=== PATIENT | male | born 1950 | race Caucasian/White ===

== ENCOUNTER → 2022-08-23 | Outpatient (CLI) | payer MEDICARE, OTHER | LOC: M RAD 12:24 | PROVIDERS: ATTEND Nurse Practitioner Family | DX: N18.9 Chronic kidney disease, unspecified (principal); N32.9 Bladder disorder, unspecified; N40.0 Benign prostatic hyperplasia without lower urinary tract symptoms ==

== ENCOUNTER → 2023-04-03 | Outpatient (CLI) | payer OTHER, MEDICARE | LOC: M PLAIMG 08:54 | PROVIDERS: ATTEND Nurse Practitioner Family | DX: R51.9 Headache, unspecified (principal); S09.90XS Unspecified injury of head, sequela ==

== ENCOUNTER 2023-09-13 09:35 | Inpatient (IN) | payer OTHER, MEDICARE ==
[~2023-09-13] VITALS: Ht 172.7 cm; Wt 87.8 kg
[2023-09-13] MEDS: methylPREDNISolone 125MG 2ML VIAL IV ONE (10:15)
[2023-09-13 10:17] LABS: VENOUS HCO3 25.6 MMOL/L (23.0-27.0); VENOUS O2 SATURATION 60.2 % (60.0-80.0); VENOUS PARTIAL PRESSURE CO2 49.6 mmHg (38.0-50.0); VENOUS PARTIAL PRESSURE O2 32.3 mmHg (30.0-50.0); VENOUS STANDARD HCO3 22.7 MMOL/L; VENOUS TOTAL CO2 27.1 MMOL/L (24.0-28.0)
[2023-09-13 10:26] LABS: BASO % 0.3 % (0.0-1.0); EOS # 0.1 10^3/uL (0.0-0.5); EOS % 1.2 % (0.0-3.0); HEMATOCRIT 44.4 % (42.0-52.0); HEMOGLOBIN 13.8 g/dl (13.5-17.5); LYMPH # 0.9 10^3/uL (1.5-5.0); LYMPH % 12.4 % (24.0-44.0); MEAN CORPUSCULAR HEMOGLOBIN 25.7 pg (27.0-33.0); MEAN CORPUSCULAR HGB CONC 31.1 g/dl (32.0-36.5); MEAN CORPUSCULAR VOLUME 82.5 fl (80.0-96.0); MONO # 0.5 10^3/uL (0.0-0.8); MONO % 7.4 % (2.0-8.0); NEUTROPHILS # 5.4 10^3/uL (1.5-8.5); NEUTROPHILS % 78.1 % (36.0-66.0); PLATELET COUNT, AUTOMATED 109 10^3/uL (150-450); RED BLOOD COUNT 5.38 10^6/uL (4.30-6.10); WHITE BLOOD COUNT 6.9 10^3/uL (4.0-10.0)
[2023-09-13] MEDS: IPRATROPIUM 0.5MG/ALBUTEROL 2.5MG INH SOL UD 3ML (DUONEB) NEB PRN (10:28)
[2023-09-13] MEDS ORDERED: FINA5TAB2 PO (10:37)
[2023-09-13] MEDS ORDERED: TAMS1CAP17 PO (10:37)
[2023-09-13] MEDS ORDERED: METO1TAB7 PO (10:37)
[2023-09-13] MEDS ORDERED: FLUO20CA22 PO (10:37)
[2023-09-13 10:58] LABS: ALBUMIN 3.6 G/DL (3.2-5.2); BILIRUBIN,DIRECT 0.5 MG/DL (<0.4); CALCIUM LEVEL 8.9 MG/DL (8.3-10.6); CREATININE FOR GFR 1.51 MG/DL (0.70-1.30); GLOMERULAR FILTRATION RATE 48.6 (>42); POTASSIUM SERUM 4.6 MMOL/L (3.5-5.1); TOTAL PROTEIN 6.3 G/DL (5.7-8.2)
[2023-09-13 10:59] LABS: THYROID STIMULATING HORMONE 0.773 uIU/ML (0.55-4.78); THYROXINE (T4) 8.2 UG/DL (4.5-10.9)
[2023-09-13 11:04] LABS: PROCALCITONIN 0.23 ng/ml
[2023-09-13] MEDS ORDERED: ISOVUE-370 76% 100ML VIAL As Ordered ONE (11:17)
[2023-09-13] MEDS: OSELTAMIVIR PHOSPHATE 75 MG CAP (TAMIFLU) PO ONE (12:21)
[2023-09-13] MEDS ORDERED: HOME MED LIST COMPLETE! XX SCH (12:25)
[2023-09-13] MEDS ORDERED: ALBUTEROL SULFATE 2.5MG/0.5ML INH NEB SOLN NEB PRN (18:05)
[2023-09-13] MEDS: FUROSEMIDE 100MG/10ML VIAL IV ONE (18:45)
[2023-09-13] MEDS: IPRATROPIUM 0.5MG/ALBUTEROL 2.5MG INH SOL UD 3ML (DUONEB) NEB SCH (20:39)
[2023-09-13] MEDS: SYMBICORT 160/4.5MCG INHALER 6GM INH SCH (20:39)
[2023-09-13 21:14] VITALS: BP 160/58; TEMP 98.6; O2SAT 96
[2023-09-13] MEDS: OSELTAMIVIR PHOSPHATE 75 MG CAP (TAMIFLU) PO SCH (21:35)
[2023-09-13] MEDS: HEPARIN SOD (PORCINE) 5000UNITS/ML 1ML VIAL/SYRINGE SQ SCH (21:38)
[2023-09-14] MEDS: ACETAMINOPHEN TAB 650MG DOSE (2X325MG) PO PRN (03:35)
[2023-09-14 04:57] VITALS: BP 130/51; TEMP 98.1; O2SAT 92
[2023-09-14 06:53] LABS: BASO % 0.1 % (0.0-1.0); HEMATOCRIT 41.2 % (42.0-52.0); HEMOGLOBIN 12.9 g/dl (13.5-17.5); LYMPH # 0.6 10^3/uL (1.5-5.0); LYMPH % 6.8 % (24.0-44.0); MEAN CORPUSCULAR HEMOGLOBIN 25.1 pg (27.0-33.0); MEAN CORPUSCULAR HGB CONC 31.3 g/dl (32.0-36.5); MEAN CORPUSCULAR VOLUME 80.2 fl (80.0-96.0); MONO # 0.4 10^3/uL (0.0-0.8); MONO % 4.2 % (2.0-8.0); NEUTROPHILS # 8.2 10^3/uL (1.5-8.5); NEUTROPHILS % 87.9 % (36.0-66.0); PLATELET COUNT, AUTOMATED 111 10^3/uL (150-450); RED BLOOD COUNT 5.14 10^6/uL (4.30-6.10); WHITE BLOOD COUNT 9.4 10^3/uL (4.0-10.0)
[2023-09-14 07:19] LABS: CALCIUM LEVEL 8.6 MG/DL (8.3-10.6); CREATININE FOR GFR 1.46 MG/DL (0.70-1.30); GLOMERULAR FILTRATION RATE 50.5 (>42); POTASSIUM SERUM 4.5 MMOL/L (3.5-5.1)
[2023-09-14 08:00] VITALS: BP 121/69; TEMP 98.1; O2SAT 94
[2023-09-14] MEDS: predniSONE 20 MG TAB PO SCH (08:47)
[2023-09-14] MEDS: FUROSEMIDE 40MG/4ML VIAL IV ONE (12:05)
[2023-09-14 14:00] VITALS: BP 132/61; TEMP 98.3; O2SAT 94
[2023-09-14] MEDS: TAMSULOSIN 0.4 MG CAP PO SCH (14:05)
[2023-09-14] MEDS: FINASTERIDE 5MG TAB PO SCH (14:05)
[2023-09-14] MEDS: FLUoxetine 20MG CAP PO SCH (14:28)
[2023-09-14] MEDS: METOPROLOL SUCC (TopROL XL) 50MG **XL** TAB PO SCH (14:34)
[2023-09-14] MEDS: OSELTAMIVIR PHOSPHATE 30MG CAPSULE PO SCH (19:54)
[2023-09-14 22:00] VITALS: BP 117/80; TEMP 98.4; O2SAT 92
[2023-09-15 06:00] VITALS: BP 119/75; TEMP 98.1; O2SAT 92
[2023-09-15 06:09] LABS: BASO % 0.2 % (0.0-1.0); EOS % 0.2 % (0.0-3.0); HEMATOCRIT 44.8 % (42.0-52.0); HEMOGLOBIN 13.6 g/dl (13.5-17.5); LYMPH # 1.3 10^3/uL (1.5-5.0); LYMPH % 10.9 % (24.0-44.0); MEAN CORPUSCULAR HEMOGLOBIN 24.6 pg (27.0-33.0); MEAN CORPUSCULAR HGB CONC 30.4 g/dl (32.0-36.5); MONO # 0.8 10^3/uL (0.0-0.8); MONO % 6.6 % (2.0-8.0); NEUTROPHILS # 9.8 10^3/uL (1.5-8.5); NEUTROPHILS % 81.4 % (36.0-66.0); PLATELET COUNT, AUTOMATED 124 10^3/uL (150-450); RED BLOOD COUNT 5.53 10^6/uL (4.30-6.10); WHITE BLOOD COUNT 12.1 10^3/uL (4.0-10.0)
[2023-09-15] MEDS: FUROSEMIDE 40MG/4ML VIAL IV ONE (06:16)
[2023-09-15 06:38] LABS: CALCIUM LEVEL 8.9 MG/DL (8.3-10.6); CREATININE FOR GFR 1.35 MG/DL (0.70-1.30); GLOMERULAR FILTRATION RATE 55.3 (>42); POTASSIUM SERUM 4.4 MMOL/L (3.5-5.1)
[2023-09-15] MEDS: IPRATROPIUM 0.5MG/ALBUTEROL 2.5MG INH SOL UD 3ML (DUONEB) NEB ONE (11:51)
[2023-09-15] MEDS: guaiFENesin ER TABLET 600 MG TAB PO SCH (11:52)
[2023-09-15 14:00] VITALS: BP 142/62; TEMP 97.7; O2SAT 94
[2023-09-15] MEDS: IPRATROPIUM 0.5MG/ALBUTEROL 2.5MG INH SOL UD 3ML (DUONEB) NEB SCH (15:51)
[2023-09-15] MEDS: dexAMETHasone 20MG/5ML VIAL IV SCH (19:32)
[2023-09-15] MEDS: RAMELTEON 8 MG TAB (ROZEREM) PO PRN (21:12)
[2023-09-15] MEDS: LACRILUBE (AKWA TEARS) OPHTH OINT 3.5GM OU SCH (21:17)
[2023-09-15 22:00] VITALS: BP 137/64; TEMP 98.5; O2SAT 99
[2023-09-16 05:58] LABS: BASO % 0.1 % (0.0-1.0); EOS % 0.1 % (0.0-3.0); HEMATOCRIT 41.7 % (42.0-52.0); LYMPH # 0.6 10^3/uL (1.5-5.0); LYMPH % 7.1 % (24.0-44.0); MEAN CORPUSCULAR HGB CONC 31.2 g/dl (32.0-36.5); MEAN CORPUSCULAR VOLUME 80.2 fl (80.0-96.0); MONO # 0.4 10^3/uL (0.0-0.8); MONO % 4.4 % (2.0-8.0); NEUTROPHILS # 7.8 10^3/uL (1.5-8.5); NEUTROPHILS % 86.9 % (36.0-66.0); PLATELET COUNT, AUTOMATED 105 10^3/uL (150-450)
[2023-09-16 06:00] VITALS: BP 135/60; TEMP 97.9; O2SAT 97
[2023-09-16 06:21] LABS: CALCIUM LEVEL 8.8 MG/DL (8.3-10.6); CREATININE FOR GFR 1.47 MG/DL (0.70-1.30); GLOMERULAR FILTRATION RATE 50.1 (>42)
[2023-09-16] MEDS ORDERED: TORSEMIDE 20 MG TAB PO SCH (09:00)
[2023-09-16] MEDS ORDERED: ARTIFICIAL TEARS DROPS 15ML BTL (VISINE DRY RELIEF) OU PRN (13:20)
[2023-09-16 14:00] VITALS: BP 144/66; TEMP 97.7; O2SAT 95
[2023-09-16 22:00] VITALS: BP 145/67; TEMP 98.1; O2SAT 94
[2023-09-17 06:00] VITALS: BP 155/75; TEMP 97.9; O2SAT 94
[2023-09-17 06:40] LABS: CALCIUM LEVEL 8.6 MG/DL (8.3-10.6); CREATININE FOR GFR 1.37 MG/DL (0.70-1.30); GLOMERULAR FILTRATION RATE 54.4 (>42); POTASSIUM SERUM 5.4 MMOL/L (3.5-5.1)
[2023-09-17 07:11] LABS: BASO % 0.1 % (0.0-1.0); EOS % 0.2 % (0.0-3.0); HEMATOCRIT 42.3 % (42.0-52.0); HEMOGLOBIN 13.2 g/dl (13.5-17.5); LYMPH # 0.6 10^3/uL (1.5-5.0); LYMPH % 7.5 % (24.0-44.0); MEAN CORPUSCULAR HEMOGLOBIN 25.3 pg (27.0-33.0); MEAN CORPUSCULAR HGB CONC 31.2 g/dl (32.0-36.5); MEAN CORPUSCULAR VOLUME 81.2 fl (80.0-96.0); MONO # 0.4 10^3/uL (0.0-0.8); MONO % 4.2 % (2.0-8.0); NEUTROPHILS # 7.4 10^3/uL (1.5-8.5); NEUTROPHILS % 86.1 % (36.0-66.0); PLATELET COUNT, AUTOMATED 105 10^3/uL (150-450); RED BLOOD COUNT 5.21 10^6/uL (4.30-6.10); WHITE BLOOD COUNT 8.6 10^3/uL (4.0-10.0)
[2023-09-17] MEDS ORDERED: COMBAER6 INH (10:37)
[2023-09-17] MEDS ORDERED: SYMB16INH INH (10:37)
[2023-09-17 14:00] VITALS: BP 144/62; TEMP 98.8; O2SAT 93
[2023-09-17] MEDS: IPRATROPIUM 0.5MG/ALBUTEROL 2.5MG INH SOL UD 3ML (DUONEB) NEB SCH (15:19)
[2023-09-17 21:31] VITALS: BP 146/62; TEMP 98.6; O2SAT 93
[2023-09-18 06:00] VITALS: BP 140/55; TEMP 98.1; O2SAT 94
[2023-09-18 06:14] LABS: BASO % 0.1 % (0.0-1.0); EOS % 0.1 % (0.0-3.0); HEMOGLOBIN 13.3 g/dl (13.5-17.5); LYMPH # 0.6 10^3/uL (1.5-5.0); LYMPH % 7.3 % (24.0-44.0); MEAN CORPUSCULAR HEMOGLOBIN 25.1 pg (27.0-33.0); MEAN CORPUSCULAR HGB CONC 30.9 g/dl (32.0-36.5); MEAN CORPUSCULAR VOLUME 81.3 fl (80.0-96.0); MONO # 0.6 10^3/uL (0.0-0.8); MONO % 7.3 % (2.0-8.0); NEUTROPHILS # 7.3 10^3/uL (1.5-8.5); NEUTROPHILS % 84.1 % (36.0-66.0); PLATELET COUNT, AUTOMATED 103 10^3/uL (150-450); RED BLOOD COUNT 5.29 10^6/uL (4.30-6.10); WHITE BLOOD COUNT 8.7 10^3/uL (4.0-10.0)
[2023-09-18 06:39] LABS: CALCIUM LEVEL 8.3 MG/DL (8.3-10.6); CREATININE FOR GFR 1.42 MG/DL (0.70-1.30); GLOMERULAR FILTRATION RATE 52.2 (>42); POTASSIUM SERUM 4.9 MMOL/L (3.5-5.1)
[2023-09-18 08:23] VITALS: BP 138/63
[2023-09-18] MEDS ORDERED: OSEL30CA PO (08:53)
[2023-09-18] MEDS ORDERED: MUCI600T31 PO (08:53)
[2023-09-18] MEDS ORDERED: PRED10TA2 PO (08:53)
== END 2023-09-18 12:06 | disposition home or self-care (01) | DRG 291 ==
LOC: EDBD 09:35 → M ED 09:35 → M ED INP 16:15 → M MSPAV 21:23
PROVIDERS: ADMIT Internal Medicine Nephrology; ATTEND Internal Medicine Nephrology
DX: I13.0 Hypertensive heart and chronic kidney disease with heart failure and stage 1 through stage 4 chronic kidney disease, or unspecified chronic kidney disease (principal); I50.41 Acute combined systolic (congestive) and diastolic (congestive) heart failure; J44.1 Chronic obstructive pulmonary disease with (acute) exacerbation; J45.901 Unspecified asthma with (acute) exacerbation; E87.1 Hypo-osmolality and hyponatremia; J10.1 Influenza due to other identified influenza virus with other respiratory manifestations; E78.5 Hyperlipidemia, unspecified; I25.10 Atherosclerotic heart disease of native coronary artery without angina pectoris; Z95.0 Presence of cardiac pacemaker; N18.32 Chronic kidney disease, stage 3b; N40.1 Benign prostatic hyperplasia with lower urinary tract symptoms; M19.90 Unspecified osteoarthritis, unspecified site; F41.9 Anxiety disorder, unspecified; F32.A Depression, unspecified; Z95.1 Presence of aortocoronary bypass graft; I27.20 Pulmonary hypertension, unspecified; I44.0 Atrioventricular block, first degree; I34.0 Nonrheumatic mitral (valve) insufficiency; R97.20 Elevated prostate specific antigen [PSA]; D69.6 Thrombocytopenia, unspecified; R16.1 Splenomegaly, not elsewhere classified; Z79.899 Other long term (current) drug therapy

== ENCOUNTER 2024-04-19 03:45 | Inpatient (IN) | payer MEDICARE, OTHER ==
[~2024-04-19] VITALS: Ht 172.7 cm; Wt 82.0 kg
[~2024-04-19 03:45] MED LIST: COMBAER6 INH; FINA5TAB2 PO; FLUO-365 PO; METO1TAB7 PO; MUCI600T31 PO; OSEL30CA PO; PRED10TA2 PO; SYMB16INH INH; TAMS1CAP17 PO
[2024-04-19 05:38] LABS: BASO % 0.5 % (0.0-1.0); EOS # 0.1 10^3/uL (0.0-0.5); EOS % 0.9 % (0.0-3.0); HEMATOCRIT 41.6 % (42.0-52.0); HEMOGLOBIN 12.8 g/dl (13.5-17.5); LYMPH % 17.1 % (24.0-44.0); MEAN CORPUSCULAR HEMOGLOBIN 25.7 pg (27.0-33.0); MEAN CORPUSCULAR HGB CONC 30.8 g/dl (32.0-36.5); MEAN CORPUSCULAR VOLUME 83.4 fl (80.0-96.0); MONO # 0.4 10^3/uL (0.0-0.8); MONO % 7.7 % (2.0-8.0); NEUTROPHILS # 4.1 10^3/uL (1.5-8.5); NEUTROPHILS % 73.4 % (36.0-66.0); PLATELET COUNT, AUTOMATED 124 10^3/uL (150-450); RED BLOOD COUNT 4.99 10^6/uL (4.30-6.10); VENOUS BASE EXCESS -2.6 (-2.0-2.0); VENOUS HCO3 22.1 MMOL/L (23.0-27.0); VENOUS O2 SATURATION 97.4 % (60.0-80.0); VENOUS PARTIAL PRESSURE CO2 37.8 mmHg (38.0-50.0); VENOUS PARTIAL PRESSURE O2 100.6 mmHg (30.0-50.0); VENOUS PH 7.384 UNITS (7.330-7.430); VENOUS STANDARD HCO3 22.3 MMOL/L; VENOUS TOTAL CO2 23.2 MMOL/L (24.0-28.0); WHITE BLOOD COUNT 5.6 10^3/uL (4.0-10.0)
[2024-04-19 06:02] LABS: ALBUMIN 3.2 G/DL (3.2-5.2); ALKALINE PHOSPHATASE 94 U/L (40-129); ALT/SGPT 13 U/L (7.0-40); AST/SGOT < 8 U/L (<34); BILIRUBIN,DIRECT 0.5 MG/DL (<0.4); BILIRUBIN,TOTAL 1.1 MG/DL (0.3-1.2); BLOOD UREA NITROGEN 51 MG/DL (9-23); CALCIUM LEVEL 9.5 MG/DL (8.3-10.6); CARBON DIOXIDE LEVEL 25 MMOL/L (20-31); CHLORIDE LEVEL 106 MMOL/L (98-107); CK-MB VALUE MASS 1.9 NG/ML (<3.6); CPK CREATINE PHOSPHOKINASE 79 U/L (46-171); CREATININE FOR GFR 1.59 MG/DL (0.70-1.30); GLOMERULAR FILTRATION RATE 45.7 (>42); GLUCOSE, FASTING 113 MG/DL (74-106); POTASSIUM SERUM 4.5 MMOL/L (3.5-5.1); SODIUM LEVEL 140 MMOL/L (136-145)
[2024-04-19 06:04] LABS: THYROID STIMULATING HORMONE 0.912 uIU/ML (0.55-4.78)
[2024-04-19] MEDS: FUROSEMIDE 100MG/10ML VIAL IV ONE (06:58)
[2024-04-19 07:17] LABS: CK-MB VALUE MASS 2.4 NG/ML (<3.6)
[2024-04-19 07:22] LABS: MB/CK RELATIVE INDEX 3.07 (< OR =4)
[2024-04-19] MEDS ORDERED: ISOVUE-370 76% 100ML VIAL As Ordered ONE (09:34)
[2024-04-19] MEDS ORDERED: GABA-1490 PO (10:42)
[2024-04-19] MEDS ORDERED: ATOR80TA59 PO (10:42)
[2024-04-19] MEDS ORDERED: COMBAER6 INH (10:42)
[2024-04-19] MEDS ORDERED: TORS100T PO (10:42)
[2024-04-19] MEDS ORDERED: ASPI81TA26 PO (10:42)
[2024-04-19] MEDS ORDERED: HOME MED LIST COMPLETE! XX SCH (10:45)
[2024-04-19] MEDS ORDERED: ACETAMINOPHEN 325 MG TAB PO PRN (13:00)
[2024-04-19] MEDS: NICOTINE 21MG/24HR 1 EA TRANSDERMAL TD ONE (13:00)
[2024-04-19] MEDS ORDERED: COMBIVENT RESPIMAT 100-20MCG INHALER 4GM INH PRN (13:05)
[2024-04-19] MEDS: DAPAGLIFLOZIN PROPANEDIOL 10MG TABLET (FARXIGA) PO SCH (13:57)
[2024-04-19] MEDS: TAMSULOSIN 0.4 MG CAP PO SCH (13:58)
[2024-04-19] MEDS: ATORVASTATIN 20 MG TAB PO SCH (13:58)
[2024-04-19] MEDS: ASPIRIN 81MG ENTERIC TABLET PO SCH (13:58)
[2024-04-19] MEDS: FLUoxetine 20MG CAP PO SCH (13:58)
[2024-04-19] MEDS: GABAPENTIN 300 MG CAP PO SCH (13:59)
[2024-04-19] MEDS: METOPROLOL SUCC (TopROL XL) 50MG **XL** TAB PO SCH (13:59)
[2024-04-19] MEDS: HEPARIN SOD (PORCINE) 5000UNITS/ML 1ML VIAL/SYRINGE SC SCH (14:00)
[2024-04-19] MEDS: ENTRESTO 24-26MG TABLET (SACUBITRIL/VALSARTAN) PO SCH (21:00)
[2024-04-19] MEDS: FINASTERIDE 5MG TAB PO SCH (21:14)
[2024-04-19 22:54] VITALS: BP 148/64; TEMP 97.9; O2SAT 97
[2024-04-19 23:00] VITALS: BP 148/64; TEMP 97.9; O2SAT 97
[2024-04-20 01:16] LABS: INR 1.16; PROTHROMBIN TIME 15.1 SECONDS (12.5-14.5)
[2024-04-20 07:25] LABS: BASO % 0.5 % (0.0-1.0); EOS # 0.1 10^3/uL (0.0-0.5); EOS % 1.8 % (0.0-3.0); HEMATOCRIT 43.9 % (42.0-52.0); HEMOGLOBIN 13.1 g/dl (13.5-17.5); LYMPH # 0.9 10^3/uL (1.5-5.0); LYMPH % 16.7 % (24.0-44.0); MEAN CORPUSCULAR HEMOGLOBIN 25.1 pg (27.0-33.0); MEAN CORPUSCULAR HGB CONC 29.8 g/dl (32.0-36.5); MEAN CORPUSCULAR VOLUME 84.1 fl (80.0-96.0); MONO # 0.5 10^3/uL (0.0-0.8); MONO % 8.2 % (2.0-8.0); NEUTROPHILS # 4.1 10^3/uL (1.5-8.5); NEUTROPHILS % 72.1 % (36.0-66.0); PLATELET COUNT, AUTOMATED 142 10^3/uL (150-450); RED BLOOD COUNT 5.22 10^6/uL (4.30-6.10); WHITE BLOOD COUNT 5.6 10^3/uL (4.0-10.0)
[2024-04-20 07:48] LABS: CALCIUM LEVEL 9.6 MG/DL (8.3-10.6); CREATININE FOR GFR 1.52 MG/DL (0.70-1.30); GLOMERULAR FILTRATION RATE 48.1 (>42); MAGNESIUM LEVEL 2.5 MG/DL (1.8-2.4); POTASSIUM SERUM 4.4 MMOL/L (3.5-5.1)
[2024-04-20 08:10] VITALS: BP 143/67; TEMP 97.6; O2SAT 96
[2024-04-20 09:49] VITALS: BP 129/58
[2024-04-20 09:55] VITALS: BP 129/58
[2024-04-20] MEDS ORDERED: FARX1TAB3 PO (11:29)
[2024-04-20] MEDS ORDERED: TORS100T PO (11:29)
[2024-04-20] MEDS ORDERED: ENTR1TAB PO (11:29)
== END 2024-04-20 13:14 | disposition home or self-care (01) | DRG 292 ==
LOC: M ED 03:45 → M ED INP 12:25 → OBSVTOIN 12:57 → M PCU 23:05
PROVIDERS: ADMIT Internal Medicine; ATTEND Internal Medicine
DX: I13.0 Hypertensive heart and chronic kidney disease with heart failure and stage 1 through stage 4 chronic kidney disease, or unspecified chronic kidney disease (principal); I50.32 Chronic diastolic (congestive) heart failure; I25.10 Atherosclerotic heart disease of native coronary artery without angina pectoris; J44.9 Chronic obstructive pulmonary disease, unspecified; E11.22 Type 2 diabetes mellitus with diabetic chronic kidney disease; N18.32 Chronic kidney disease, stage 3b; E78.5 Hyperlipidemia, unspecified; M19.90 Unspecified osteoarthritis, unspecified site; E11.42 Type 2 diabetes mellitus with diabetic polyneuropathy; F41.9 Anxiety disorder, unspecified; N52.9 Male erectile dysfunction, unspecified; F32.A Depression, unspecified; N40.1 Benign prostatic hyperplasia with lower urinary tract symptoms; F17.210 Nicotine dependence, cigarettes, uncomplicated; Z95.5 Presence of coronary angioplasty implant and graft; Z95.0 Presence of cardiac pacemaker; Z95.2 Presence of prosthetic heart valve; Z71.6 Tobacco abuse counseling; Z79.82 Long term (current) use of aspirin; Z79.899 Other long term (current) drug therapy

== ENCOUNTER → 2024-10-27 | Outpatient (CLI) | payer MEDICARE, OTHER ==
[~2024-10-27] MED LIST changes: +ASPI81TA26 PO; +ATOR80TA59 PO; +ENTR1TAB PO; +FARX1TAB3 PO; +GABA-1490 PO; +TORS100T PO
[2024-10-27 14:37] LABS: CALCIUM LEVEL 9.7 MG/DL (8.3-10.6); CREATININE FOR GFR 1.74 MG/DL (0.70-1.30); GLOMERULAR FILTRATION RATE 40.6 (>42); POTASSIUM SERUM 4.8 MMOL/L (3.5-5.1)
== END ==
LOC: M LAB 12:32
PROVIDERS: ATTEND Internal Medicine Cardiovascular Disease
DX: I50.43 Acute on chronic combined systolic (congestive) and diastolic (congestive) heart failure (principal)

== ENCOUNTER 2024-11-07 14:09 | Inpatient (IN) | payer OTHER, MEDICARE ==
[~2024-11-07] VITALS: Ht 172.7 cm; Wt 81.2 kg
[2024-11-07 16:36] LABS: BASO % 0.3 % (0.0-1.0); EOS # 0.2 10^3/uL (0.0-0.5); EOS % 2.3 % (0.0-3.0); HEMATOCRIT 41.2 % (42.0-52.0); HEMOGLOBIN 12.6 g/dl (13.5-17.5); LYMPH # 1.2 10^3/uL (1.5-5.0); LYMPH % 16.2 % (24.0-44.0); MEAN CORPUSCULAR HEMOGLOBIN 24.4 pg (27.0-33.0); MEAN CORPUSCULAR HGB CONC 30.6 g/dl (32.0-36.5); MEAN CORPUSCULAR VOLUME 79.7 fl (80.0-96.0); MONO # 0.6 10^3/uL (0.0-0.8); MONO % 8.6 % (2.0-8.0); NEUTROPHILS # 5.4 10^3/uL (1.5-8.5); NEUTROPHILS % 72.1 % (36.0-66.0); PLATELET COUNT, AUTOMATED 115 10^3/uL (150-450); RED BLOOD COUNT 5.17 10^6/uL (4.30-6.10); WHITE BLOOD COUNT 7.5 10^3/uL (4.0-10.0)
[2024-11-07 16:59] LABS: CALCIUM LEVEL 8.7 MG/DL (8.3-10.6); CREATININE FOR GFR 1.77 MG/DL (0.70-1.30); GLOMERULAR FILTRATION RATE 39.8 (>42); POTASSIUM SERUM 4.6 MMOL/L (3.5-5.1)
[2024-11-07] MEDS ORDERED: ISOVUE-370 76% 100ML VIAL As Ordered ONE (17:16)
[2024-11-07] MEDS: NS (Normal Saline) 0.9% 1,000 ML IV SCH (17:20)
[2024-11-07 17:31] LABS: ALBUMIN 3.1 G/DL (3.2-5.2); BILIRUBIN,DIRECT 0.4 MG/DL (<0.4); BILIRUBIN,TOTAL 0.8 MG/DL (0.3-1.2); CK-MB VALUE MASS 1.8 NG/ML (<3.6); MB/CK RELATIVE INDEX 4.18 (< OR =4); TOTAL PROTEIN 5.6 G/DL (5.7-8.2)
[2024-11-07 17:33] LABS: THYROID STIMULATING HORMONE 0.329 uIU/ML (0.55-4.78)
[2024-11-07 17:34] LABS: FREE T4 1.06 NG/DL (0.89-1.76)
[2024-11-07] MEDS: NS 500 ML IV ONE (18:26)
[2024-11-07 18:46] LABS: CK-MB VALUE MASS 1.9 NG/ML (<3.6)
[2024-11-07 18:48] LABS: MB/CK RELATIVE INDEX 3.87 (< OR =4)
[2024-11-07] MEDS ORDERED: MOM 30ML SUSPENSION UDC PO PRN (21:50)
[2024-11-07] MEDS ORDERED: MAALOX 30 ML SUSP *UDC PO PRN (21:50)
[2024-11-07] MEDS ORDERED: TORS20TA2 PO (22:16)
[2024-11-07] MEDS ORDERED: JARD1TAB PO (22:17)
[2024-11-07] MEDS ORDERED: MECL-136 PO (22:18)
[2024-11-07] MEDS ORDERED: SPIR-10 PO (22:18)
[2024-11-07] MEDS ORDERED: HOME MED LIST COMPLETE! XX SCH (22:20)
[2024-11-07 23:03] LABS: APPEARANCE, URINE CLEAR (CLEAR); BACTERIA, URINE AUTO NEGATIVE (NEGATIVE); BILIRUBIN, URINE AUTO NEGATIVE (NEGATIVE); BLOOD, URINE BLOOD 1+ (NEGATIVE); COLOR, URINE YELLOW (YELLOW); GLUCOSE, URINE (UA) AUTO 3+ mg/dL (NEGATIVE); KETONE, URINE AUTO NEGATIVE (NEGATIVE); LEUKOCYTE ESTERASE, URINE AUTO NEGATIVE (NEGATIVE); NITRITE, URINE AUTO NEGATIVE (NEGATIVE); PROTEIN, URINE AUTO NEGATIVE (NEGATIVE); RBC, URINE AUTO 1 /HPF (0-3); SPECIFIC GRAVITY URINE AUTO 1.024 (1.002-1.035); SQUAMOUS EPITHELIAL CELL UR AU 0 /HPF (0-6); UROBILINOGEN, URINE AUTO 0.2 mg/dL (0.0-2.0); WBC, URINE AUTO 0 /HPF (0-3)
[2024-11-08] MEDS: NS (Normal Saline) 0.9% 1,000 ML IV SCH (01:00)
[2024-11-08] MEDS: ACETAMINOPHEN 325 MG TAB PO PRN (03:32)
[2024-11-08 06:41] LABS: BASO % 0.5 % (0.0-1.0); EOS # 0.2 10^3/uL (0.0-0.5); EOS % 2.4 % (0.0-3.0); HEMATOCRIT 40.7 % (42.0-52.0); HEMOGLOBIN 12.6 g/dl (13.5-17.5); LYMPH % 16.8 % (24.0-44.0); MEAN CORPUSCULAR HEMOGLOBIN 24.6 pg (27.0-33.0); MEAN CORPUSCULAR VOLUME 79.3 fl (80.0-96.0); MONO # 0.4 10^3/uL (0.0-0.8); MONO % 7.1 % (2.0-8.0); NEUTROPHILS # 4.5 10^3/uL (1.5-8.5); NEUTROPHILS % 72.7 % (36.0-66.0); PLATELET COUNT, AUTOMATED 106 10^3/uL (150-450); RED BLOOD COUNT 5.13 10^6/uL (4.30-6.10); WHITE BLOOD COUNT 6.2 10^3/uL (4.0-10.0)
[2024-11-08 07:05] LABS: ALBUMIN 3.1 G/DL (3.2-5.2); BILIRUBIN,TOTAL 0.8 MG/DL (0.3-1.2); CALCIUM LEVEL 8.6 MG/DL (8.3-10.6); CREATININE FOR GFR 1.4 MG/DL (0.70-1.30); GLOMERULAR FILTRATION RATE 52.7 (>42); MAGNESIUM LEVEL 2.2 MG/DL (1.8-2.4); POTASSIUM SERUM 4.8 MMOL/L (3.5-5.1); TOTAL PROTEIN 5.6 G/DL (5.7-8.2)
[2024-11-08 07:11] LABS: PROCALCITONIN 0.24 ng/ml
[2024-11-08] MEDS ORDERED: MECLIZINE 12.5 MG TAB PO PRN (07:35)
[2024-11-08] MEDS: DOCUSATE SODIUM 100MG CAPSULE PO SCH (09:00)
[2024-11-08] MEDS: TORSEMIDE 20 MG TAB PO SCH (09:30)
[2024-11-08] MEDS: ATORVASTATIN 20 MG TAB PO SCH (09:30)
[2024-11-08] MEDS: GABAPENTIN 300 MG CAP PO SCH (09:30)
[2024-11-08] MEDS: FLUoxetine 20MG CAP PO SCH (09:30)
[2024-11-08] MEDS: ASPIRIN 81MG ENTERIC TABLET PO SCH (09:30)
[2024-11-08] MEDS: METOPROLOL SUCC *XL* 25MG TAB (TopROL *XL*) PO SCH (09:32)
[2024-11-08] MEDS: SPIRONOLACTONE 25 MG TAB PO SCH (09:33)
[2024-11-08] MEDS: TAMSULOSIN 0.4 MG CAP PO SCH (09:33)
[2024-11-08] MEDS ORDERED: MECLIZINE 25 MG TABLET PO PRN (10:35)
[2024-11-08 12:00] VITALS: BP 144/66; TEMP 97.5; O2SAT 96
[2024-11-08 12:35] VITALS: BP 128/57; TEMP 97.3; O2SAT 98
[2024-11-08 18:21] VITALS: BP 137/63; TEMP 97.3; O2SAT 98
[2024-11-08 19:55] VITALS: BP 136/69; TEMP 97; O2SAT 95
[2024-11-08 19:59] LABS: FOLATE 8.59 NG/ML (>5.4)
[2024-11-08 20:02] LABS: HEMOGLOBIN A1c 6.3 % (4.0-6.0)
[2024-11-08] MEDS: FINASTERIDE 5MG TAB PO SCH (20:17)
[2024-11-09 04:07] VITALS: BP 120/52; TEMP 97.2; O2SAT 95
[2024-11-09 07:02] LABS: BASO % 0.3 % (0.0-1.0); EOS # 0.1 10^3/uL (0.0-0.5); EOS % 2.2 % (0.0-3.0); HEMATOCRIT 39.9 % (42.0-52.0); HEMOGLOBIN 12.1 g/dl (13.5-17.5); LYMPH # 0.9 10^3/uL (1.5-5.0); LYMPH % 14.2 % (24.0-44.0); MEAN CORPUSCULAR HEMOGLOBIN 24.5 pg (27.0-33.0); MEAN CORPUSCULAR HGB CONC 30.3 g/dl (32.0-36.5); MEAN CORPUSCULAR VOLUME 80.9 fl (80.0-96.0); MONO # 0.5 10^3/uL (0.0-0.8); MONO % 7.2 % (2.0-8.0); NEUTROPHILS # 4.7 10^3/uL (1.5-8.5); NEUTROPHILS % 75.5 % (36.0-66.0); PLATELET COUNT, AUTOMATED 110 10^3/uL (150-450); RED BLOOD COUNT 4.93 10^6/uL (4.30-6.10); WHITE BLOOD COUNT 6.3 10^3/uL (4.0-10.0)
[2024-11-09 07:47] LABS: CALCIUM LEVEL 8.4 MG/DL (8.3-10.6); CREATININE FOR GFR 1.39 MG/DL (0.70-1.30); GLOMERULAR FILTRATION RATE 53.2 (>42); POTASSIUM SERUM 4.6 MMOL/L (3.5-5.1)
[2024-11-09 09:07] VITALS: BP 143/53
[2024-11-09] MEDS: TORSEMIDE 20 MG TAB PO ONE (09:59)
[2024-11-09] MEDS ORDERED: MECL-86 PO (11:55)
== END 2024-11-09 12:55 | disposition home or self-care (01) | DRG 92 ==
LOC: EDBD 14:09 → M ED 14:09 → M ED INP 21:48 → M MS5PR 11-08 12:40
PROVIDERS: ADMIT Student in an Organized Health Care Education/Training Program; ATTEND Student in an Organized Health Care Education/Training Program
DX: R29.6 Repeated falls (principal); N17.9 Acute kidney failure, unspecified; I13.0 Hypertensive heart and chronic kidney disease with heart failure and stage 1 through stage 4 chronic kidney disease, or unspecified chronic kidney disease; R13.10 Dysphagia, unspecified; R42 Dizziness and giddiness; N18.9 Chronic kidney disease, unspecified; I50.9 Heart failure, unspecified; N40.0 Benign prostatic hyperplasia without lower urinary tract symptoms; G62.9 Polyneuropathy, unspecified; Z95.0 Presence of cardiac pacemaker; N28.89 Other specified disorders of kidney and ureter; F17.200 Nicotine dependence, unspecified, uncomplicated; Z66 Do not resuscitate; Z79.899 Other long term (current) drug therapy; Z79.82 Long term (current) use of aspirin

== ENCOUNTER → 2025-02-04 | Outpatient (CLI) | payer MEDICARE, OTHER ==
[~2025-02-04] MED LIST changes: +ELIQ5TAB PO; +JARD1TAB PO; +MECL-136 PO; +MECL-86 PO; +SPIR-10 PO; +TORS20TA2 PO
== END ==
LOC: M RAD 11:21
PROVIDERS: ATTEND Internal Medicine Cardiovascular Disease
DX: R06.02 Shortness of breath (principal); M19.011 Primary osteoarthritis, right shoulder; M19.012 Primary osteoarthritis, left shoulder; R09.89 Other specified symptoms and signs involving the circulatory and respiratory systems

== ENCOUNTER → 2025-02-04 | Outpatient (CLI) | payer MEDICARE, OTHER | LOC: M RAD 11:16 | PROVIDERS: ATTEND Internal Medicine Hematology & Oncology | DX: R19.00 Intra-abdominal and pelvic swelling, mass and lump, unspecified site (principal); N40.0 Benign prostatic hyperplasia without lower urinary tract symptoms; N28.89 Other specified disorders of kidney and ureter; R93.89 Abnormal findings on diagnostic imaging of other specified body structures ==

== ENCOUNTER → 2025-03-09 | Outpatient (CLI) | payer MEDICARE, OTHER ==
[2025-03-09 16:02] LABS: CALCIUM LEVEL 8.7 MG/DL (8.3-10.6); CARBON DIOXIDE LEVEL 30.0 MMOL/L (20-31); CHLORIDE LEVEL 105.0 MMOL/L (98-107); CREATININE FOR GFR 1.36 MG/DL (0.70-1.30); GLOMERULAR FILTRATION RATE 54.6 (>42); POTASSIUM SERUM 4.0 MMOL/L (3.5-5.1); SODIUM LEVEL 142.0 MMOL/L (136-145)
== END ==
LOC: M LAB 14:12
PROVIDERS: ATTEND Physician Assistant
DX: N28.89 Other specified disorders of kidney and ureter (principal)

== ENCOUNTER → 2025-03-13 | Outpatient (CLI) | payer OTHER, MEDICARE ==
[~2025-03-13] MED LIST changes: +ISOVUE-370 76% 100 ML VIAL As Ordered ONE
== END ==
LOC: M RAD 08:26
PROVIDERS: ATTEND Physician Assistant
DX: N28.89 Other specified disorders of kidney and ureter (principal)
CPT/HCPCS: 74160; Q9967

== ENCOUNTER → 2025-04-23 | Outpatient (REF) | payer OTHER, MEDICARE ==
[~2025-04-23] MED LIST changes: -ISOVUE-370 76% 100 ML VIAL As Ordered ONE; +MELA10CA6 PO; +PERC5TAB12 PO
[2025-04-23 14:53] LABS: APPEARANCE, URINE CLEAR (CLEAR); BACTERIA, URINE AUTO NEGATIVE (NEGATIVE); BILIRUBIN, URINE AUTO NEGATIVE (NEGATIVE); BLOOD, URINE BLOOD 1+ (NEGATIVE); GLUCOSE, URINE (UA) AUTO NEGATIVE (NEGATIVE); KETONE, URINE AUTO NEGATIVE (NEGATIVE); LEUKOCYTE ESTERASE, URINE AUTO NEGATIVE (NEGATIVE); NITRITE, URINE AUTO NEGATIVE (NEGATIVE); PROTEIN, URINE AUTO 1+ mg/dL (NEGATIVE); RBC, URINE AUTO 5 /HPF (0-3); SPECIFIC GRAVITY URINE AUTO 1.009 (1.002-1.035); SQUAMOUS EPITHELIAL CELL UR AU 0 /HPF (0-6); UROBILINOGEN, URINE AUTO 0.2 mg/dL (0.0-2.0); WBC, URINE AUTO 0 /HPF (0-3)
== END ==
LOC: M SMT 14:36
PROVIDERS: ATTEND Physician Assistant
DX: Z01.818 Encounter for other preprocedural examination (principal); R30.0 Dysuria

== ENCOUNTER 2025-04-24 10:26 | Day surgery (SDC) | payer MEDICARE, OTHER ==
[~2025-04-24] VITALS: Ht 172.7 cm; Wt 78.5 kg
[~2025-04-24 10:26] MED LIST changes: +GLYCOPYRROLATE INJ 0.2 MG/ML 2 ML VIAL As Ordered ONE; +LIDOCAINE 2% 100 MG/5 ML SDV (FOR ANES.) As Ordered ONE; +MIDAZOLAM INJ 2 MG/2 ML VIAL As Ordered ONE; +ONDANSETRON 4MG/2ML VIAL As Ordered ONE; -PERC5TAB12 PO
[2025-04-24] MEDS ORDERED: LR 1,000 ML IV SCH (11:35)
[2025-04-24] MEDS ORDERED: ACETAMINOPHEN 1000MG/100ML IV BAG As Ordered ONE (11:50)
[2025-04-24] MEDS: ceFAZolin SOD 2 GM IV ONCE IV ONE (11:54)
[2025-04-24] MEDS ORDERED: PERC5TAB12 PO (12:06)
[2025-04-24] MEDS: ISOVUE-300 61% 100 ML VIAL As Ordered ONE (12:15)
[2025-04-24] MEDS ORDERED: MEPERIDINE 25 MG/ML 1 ML VIAL IV PRN (12:30)
[2025-04-24] MEDS ORDERED: ONDANSETRON 4MG/2ML VIAL IV PRN (12:30)
[2025-04-24 13:15] VITALS: BP 137/100; TEMP 97.2; O2SAT 98
[2025-04-24] MEDS ORDERED: PERCOCET 5MG/325MG TAB PO PRN (13:35)
== END 2025-04-24 13:50 | disposition home or self-care (01) ==
LOC: M SDC 10:26
PROVIDERS: ATTEND Urology
DX: N28.89 Other specified disorders of kidney and ureter (principal); I25.10 Atherosclerotic heart disease of native coronary artery without angina pectoris; I10 Essential (primary) hypertension; N18.32 Chronic kidney disease, stage 3b; Z95.810 Presence of automatic (implantable) cardiac defibrillator; Z95.0 Presence of cardiac pacemaker; K57.92 Diverticulitis of intestine, part unspecified, without perforation or abscess without bleeding; N40.0 Benign prostatic hyperplasia without lower urinary tract symptoms; Z79.01 Long term (current) use of anticoagulants; Z79.899 Other long term (current) drug therapy; F17.210 Nicotine dependence, cigarettes, uncomplicated
CPT/HCPCS: 52005; 52332; 74420; C2617; J0131; J0688; J1596; J2250; J2405; J3010; Q9967